=== PATIENT | male | born 1990 | race Caucasian/White ===

== ENCOUNTER 2019-02-04 15:33 | Emergency (ER) | payer BC, MEDICAID ==
--- NOTE | 2019-02-04 16:41 | ED Physician Documentation ---
PD HPI URI - Stated complaint Stated Complaint: FEVER, BLISTERS ON HANDS/FEET/FACE - Chief complaint Chief Complaint: Wound - History obtained from History obtained from: Patient - History of Present Illness Timing - onset: How many days ago (2) Timing duration: Days (2) Timing details: Abrupt onset, Still present Associated symptoms: Fever, Nasal congestion, Dry cough, Other (skin rash diffusely, most notable on face and hands.). No: NVD Contributing factors: Sick contact (kids with HFM with some rash. He thought he would not be getting it but started with URI/fever/rash couple days ago. Needed note to stay home from work.) Similar symptoms before: Has not had sx before Review of Systems Constitutional: reports: Fever Nose: reports: Rhinorrhea / runny nose, Congestion Throat: reports: Oral lesions / sores. denies: Sore throat Respiratory: reports: Cough GI: denies: Nausea, Vomiting, Diarrhea : denies: Dysuria, Frequency, Discharge Skin: reports: Rash Musculoskeletal: denies: Neck pain, Back pain PD PAST MEDICAL HISTORY - Past Medical History Past Medical History: No - Past Surgical History Past Surgical History: No - Present Medications Home Medications: Ambulatory Orders Medication Instructions Recorded Confirmed Cetirizine [ZyrTEC] 10 mg PO DAILY #15 tablet 02/04/19 dexAMETHasone [Decadron] 4 mg PO DAILY #5 tablet 02/04/19 - Allergies Allergies/Adverse Reactions: Allergies Allergy/AdvReac Type Severity Reaction Status Date / Time No Known Drug Allergies Allergy Verified 02/04/19 15:40 - Social History Does the pt smoke?: Yes Does the pt drink ETOH?: Yes Does the pt have substance abuse?: No - Immunizations Immunizations are current?: No Immunizations: TDAP >10years/unknown PD ED PE NORMAL - Vitals Vital signs reviewed: Yes - General General: Alert and oriented X 3, Well developed/nourished - HEENT HEENT: No: Pharynx benign (some red spots on roof of mouth) - Neck Neck: Supple, no meningeal sign, No adenopathy - Cardiac Cardiac: RRR, No murmur - Respiratory Respiratory: Clear bilaterally - Derm Derm: Normal color, Warm and dry, Other (diffuse spotty red rash, notable on face, also seen on hands/palms and whole body. ) - Neuro Neuro: Alert and oriented X 3, No motor deficit, Normal speech Results - Vitals Vitals: Oxygen O2 Source Room air PD MEDICAL DECISION MAKING - ED course Complexity details: considered differential, d/w patient Departure - Departure Disposition: 01 Home, Self Care Clinical Impression: Hand, foot and mouth disease (HFMD) Condition: Stable Record reviewed to determine appropriate education?: Yes Instructions: ED Hand Foot Mouth Disease Ch Prescriptions: Cetirizine [ZyrTEC] 10 mg PO DAILY #15 tablet dexAMETHasone [Decadron] 4 mg PO DAILY #5 tablet Forms: Activity restrictions Discharge Date/Time: 02/04/19 17:38
[2019-02-04] MEDS ORDERED: CHERRY SYRUP 10 ML UDC PO ONE (16:57)
[2019-02-04] MEDS ORDERED: ACETAMINOPHEN 325 MG TABLET PO STA (16:57)
[2019-02-04] MEDS ORDERED: DEXAMETHASONE 10 MG/ML VIAL PO STA (16:57)
[2019-02-04] MEDS ORDERED: CETIRIZINE 10 MG TABLET PO STA (16:57)
[2019-02-04 17:21] VITALS: BP 136/85
== END 2019-02-04 17:38 | disposition home or self-care (01) ==
LOC: ED 15:33
DX: B08.4 Enteroviral vesicular stomatitis with exanthem (principal)
CPT/HCPCS: 99282; 99284; A9270

== ENCOUNTER 2022-07-29 23:24 | Emergency (ER) | payer MEDICAID ==
[2022-07-30 00:09] VITALS: BP 184/108
== END 2022-07-30 05:17 | disposition left against medical advice (07) ==
LOC: ED 23:24
DX: Z53.21 Procedure and treatment not carried out due to patient leaving prior to being seen by health care provider (principal)

== ENCOUNTER 2022-09-13 13:02 | Emergency (ER) | payer MEDICAID ==
--- NOTE | 2022-09-13 13:36 | ED Physician Documentation ---
History of Present Illness - Stated complaint Stated Complaint: RT ABD PX - Chief complaint Chief Complaint: Abd Pain - Additonal information Additional information: 31-year-old male presents emergency department for evaluation of 1 week right lower quadrant abdominal pain. He states the pain is intermittent and he feels it mostly when sitting. He describes it as pressure-like. No associated fevers, nausea, vomiting or diarrhea. Denies any constipation. No pertinent past surgical history. He is free of abdominal pain at the time of my exam Review of Systems Constitutional: reports: Reviewed and negative Nose: reports: Reviewed and negative Cardiac: reports: Reviewed and negative Respiratory: reports: Reviewed and negative GI: reports: Abdominal Pain. denies: Nausea, Vomiting, Constipation, Hematemesis, Bloody / black stool : reports: Reviewed and negative Skin: reports: Reviewed and negative Musculoskeletal: reports: Reviewed and negative Neurologic: reports: Reviewed and negative PD PAST MEDICAL HISTORY - Past Surgical History Past Surgical History: No - Present Medications Home Medications: Ambulatory Orders Medication Instructions Recorded Confirmed Cetirizine [ZyrTEC] 10 mg PO DAILY #15 tablet 02/04/19 dexAMETHasone [Decadron] 4 mg PO DAILY #5 tablet 02/04/19 - Allergies Allergies/Adverse Reactions: Allergies Allergy/AdvReac Type Severity Reaction Status Date / Time No Known Drug Allergies Allergy Verified 07/30/22 00:08 - Social History Does the pt smoke?: Yes Smoking Status: Current every day smoker Does the pt drink ETOH?: Yes Does the pt have substance abuse?: No - Immunizations Immunizations are current?: No Immunizations: TDAP >10years/unknown - POLST Patient has POLST: No PD ED PE NORMAL - General General: Alert and oriented X 3, No acute distress - Neck Neck: Supple, no meningeal sign - Cardiac Cardiac: RRR, No murmur - Respiratory Respiratory: No respiratory distress, Clear bilaterally - Abdomen Abdomen: Normal bowel sounds, Non tender (Unable to elicit any tenderness in the right lower quadrant of the abdomen. Negative McBurney's. Negative Boone's. No CVA tenderness.) - Back Back: No CVA TTP - Derm Derm: Warm and dry - Neuro Neuro: Alert and oriented X 3 Eye Opening: Spontaneous Motor: Obeys Commands Verbal: Oriented GCS Score: 15 Results - Vitals Vitals: Vital Signs - 24 hr 09/13/22 09/13/22 13:19 14:00 Temperature 37.2 C 37.6 C Heart Rate 85 80 Respiratory 20 18 Rate Blood Pressure 183/107 H 161/95 H O2 Saturation 98 97 Oxygen O2 Source Room air - Labs Labs: Laboratory Tests 09/13/22 09/13/22 09/13/22 13:38 13:41 13:41 WBC 5.7 RBC 6.06 Hgb 15.7 Hct 49.6 MCV 81.8 MCH 25.9 L MCHC 31.7 L RDW 13.2 Plt Count 272 MPV 9.6 Neut # (Auto) 3.8 Lymph # (Auto) 1.4 [place] # (Auto) 0.4 Eos # (Auto) 0.0 Baso # (Auto) 0.0 Absolute Nucleated RBC 0.00 Nucleated RBC % 0.0 Sodium 140 Potassium 3.7 Chloride 104 Carbon Dioxide 27 Anion Gap 9.0 BUN 14 Creatinine 0.8 Estimated GFR (MDRD) 111 Glucose 131 H Calcium 9.9 Total Bilirubin 0.8 AST 33 ALT 65 H Alkaline Phosphatase 62 Total Protein 8.0 Albumin 4.9 Globulin 3.1 Albumin/Globulin Ratio 1.6 Lipase 30 Urine Color YELLOW Urine Clarity CLEAR Urine pH 6.0 Ur Specific [place] 1.010 Urine Protein NEGATIVE Urine Glucose (UA) NEGATIVE Urine Ketones NEGATIVE Urine Occult Blood NEGATIVE Urine Nitrite NEGATIVE Urine Bilirubin NEGATIVE Urine Urobilinogen 0.2 (NORMAL) Ur Leukocyte Esterase NEGATIVE Ur Microscopic Review NOT INDICATED Urine Culture Comments NOT INDICATED - Rads (name of study) abd/pel ct w Relevant Findings:: Final report received (No acute abdominal or pelvic abnormality. Normal appendix. No nephroureterolithiasis.) PD Medical Decision Making - ED course Complexity details: reviewed results, re-evaluated patient, d/w patient ED course: 31-year-old male here with 1 week of right lower quadrant abdominal pain. Describes it as pressure-like. Not associated with food intake. No urinary symptoms. At the time of my exam he was free of abdominal pain but was concerned that he could have acute appendicitis. We did obtain CBC, electrolytes and urinalysis. Per my interpretation there is no acute worrisome findings. CT of the abdomen was without acute surgical cause identified. Clinically I suspect he may have some mild constipation though the patient reports daily bowel movements. He is also wondering if he could have pulled a muscle though he denies any inciting events. At this time there is no acute cause identified for his abdominal pain. I did recommend a stool softener. Also recommended Motrin and Tylenol with usual emergent return precautions discussed for worsening symptoms Departure - Departure Disposition: 01 Home, Self Care Clinical Impression: Right lower quadrant abdominal pain Condition: Stable Record reviewed to determine appropriate education?: Yes Comments: Marcelo umanzor are seen today in the emergency department because for about a week you have had some pain and pressure in the right lower quadrant of your abdomen. As discussed at the bedside the labs obtained today in the emergency department were essentially normal. We also did do a CT of the abdomen that did not show any findings to suggest kidney stones, ureter stones, acute appendicitis, diverticulitis or other worrisome surgical conditions. I do note that there is a modest amount of stool throughout your colon. It is possible that a mild amount of constipation is causing your symptoms. I do recommend a stool softener or few doses of MiraLAX to see if that improves symptoms. You did wonder if it could possibly be a pulled muscle and in this case I would expect it to be spontaneously resolving over the next week or so however you can try and help it along by taking some Tylenol or ibuprofen [id number]. Discussed this ED visit with your primary care doctor. Return to the ER if you have suddenly severe or different abdominal pain, fevers, uncontrolled vomiting, black or bloody stools.
[2022-09-13 13:43] LABS: BILIRUBIN,URINE NEGATIVE (NEGATIVE); GLUCOSE, URINE (UA) NEGATIVE (NEGATIVE); KETONES,URINE (UA) NEGATIVE (NEGATIVE); LEUKOCYTE ESTERASE, URINE NEGATIVE (NEGATIVE); NITRITE,URINE NEGATIVE (NEGATIVE); OCCULT BLOOD,URINE NEGATIVE (NEGATIVE); PROTEIN,URINE NEGATIVE (NEGATIVE); UROBILINOGEN,URINE 0.2 (NORMAL) E.U./dL (NORMAL)
[2022-09-13 13:44] LABS: BASOPHILS % (AUTO) 0.7 %; EOSINOPHILS % (AUTO) 0.7 %; HCT - HEMATOCRIT 49.6 % (42.0-52.0); HGB - HEMOGLOBIN 15.7 g/dL (14.0-18.0); LYMPHOCYTES # (AUTO) 1.4 10^3/uL (1.5-3.5); LYMPHOCYTES % (AUTO) 24.1 %; MEAN CORPUSCULAR HEMOGLOBIN 25.9 pg (27.0-31.0); MEAN CORPUSCULAR HGB CONC 31.7 g/dL (32.0-36.0); MEAN CORPUSCULAR VOLUME 81.8 fL (80.0-94.0); MEAN PLATELET VOLUME 9.6 fL (7.4-11.4); MONOCYTES # (AUTO) 0.4 10^3/uL (0.0-1.0); NEUTROPHILS # (AUTO) 3.8 10^3/uL (1.5-6.6); NEUTROPHILS % (AUTO) 67.3 %; PLT - PLATELET COUNT 272 10^3/uL (130-450); RED BLOOD COUNT 6.06 10^6/uL (4.70-6.10); RED CELL DISTRIBUTION WIDTH 13.2 % (12.0-15.0); WHITE BLOOD COUNT 5.7 x10^3/uL (4.8-10.8)
[2022-09-13 13:44] LABS: CLARITY,URINE CLEAR (CLEAR)
[2022-09-13 13:57] LABS: ALBUMIN 4.9 g/dL (3.2-5.5); ALBUMIN/GLOBULIN RATIO 1.6 (1.0-2.2); BILIRUBIN,TOTAL 0.8 mg/dL (0.2-1.0); CALCIUM 9.9 mg/dL (8.5-10.3); CREATININE 0.8 mg/dL (0.6-1.2); POTASSIUM 3.7 mmol/L (3.5-5.0)
[2022-09-13] MEDS ORDERED: iohexoL-300 100 ML VIAL ONE (14:36)
[2022-09-13] MEDS ORDERED: iohexoL-300 100 ML VIAL IVP ONE (14:49)
--- NOTE | 2022-09-13 15:11 | CT Report ---
PROCEDURE: ABDOMEN/PELVIS W INDICATIONS: RLQ Abdominal pain, appendicitis suspected TECHNIQUE: After the administration of contrast, 5 mm thick sections acquired from the diaphragms to the symphys is. 5 mm thick coronal and sagittal reformats were acquired. For radiation dose reduction, the foll owing was used: automated exposure control, adjustment of mA and/or kV according to patient size. COMPARISON: None FINDINGS: Image quality: Excellent. Lung bases and heart: Unremarkable. Liver: The liver has low density consistent with hepatic steatosis. The gallbladder is normal. Gallbladder and biliary tree: The gallbladder is normal. Spleen: No splenomegaly. Pancreas: No pancreatic ductal dilation. Adrenals: No adrenal nodule. Kidneys and ureters: No hydronephrosis. No renal cystic lesion which requires follow up. No solid mas s. A simple 1.2 cm cyst of the right superior pole and a simple 1 cm cyst of the left lower pole is s een. Bowel and peritoneum: No bowel distension. No pathologic free fluid. Diverticulosis without evidence of acute diverticulitis. Lymph nodes: No central or retroperitoneal adenopathy. Vessels: No infrarenal aortic aneurysm. PELVIS Reproductive organs: Unremarkable. Bladder: No abnormal wall thickening, accounting for underdistension. Pelvic lymph nodes: No pelvic adenopathy by size criteria. Bones: No aggressive osseous abnormality. Other: No significant ventral or inguinal hernia. IMPRESSION: 1. No acute abdominal or pelvic abnormality. 2. Normal appendix. 3. No nephroureterolithiasis. Reviewed by: Nik Nicholson on 09/13/2022 2:09 PM [facility] Approved by: Nik Nicholson on 09/13/2022 2:09 PM [facility] Station ID: [id number]
[2022-09-13 15:37] VITALS: BP 143/97
== END 2022-09-13 15:32 | disposition home or self-care (01) ==
LOC: ED 13:02
DX: R10.31 Right lower quadrant pain (principal); F17.200 Nicotine dependence, unspecified, uncomplicated
CPT/HCPCS: 36415; 74177; 80053; 81003; 83690; 85025; 99283; 99284; Q9967; 81001; 87086

== ENCOUNTER 2022-12-17 08:00 | Outpatient (CLI) | payer MEDICAID ==
[2022-12-17 18:15] LABS: FECAL OCCULT BLOOD (FIT) NEGATIVE (NEGATIVE)
== END 2022-12-17 23:59 | disposition home or self-care (01) ==
LOC: LAB.R 08:00
PROVIDERS: ATTEND Family Medicine
DX: R10.9 Unspecified abdominal pain (principal); K76.0 Fatty (change of) liver, not elsewhere classified
CPT/HCPCS: 36415; 80061; 80076; 82274; 83721; 83993; 84443; 86803; 87045; 87046; 87177; 87209; 87340; 87427

== ENCOUNTER 2022-12-17 13:48 | Outpatient (CLI) | payer MEDICAID ==
[2022-12-17 18:31] LABS: THYROID STIMULATING HORMONE 1.36 uIU/mL (0.34-5.60)
[2022-12-17 20:53] LABS: ALKALINE PHOSPHATASE 68 IU/L (42-121); ALT ALANINE AMINOTRANSFERASE 27 IU/L (10-60); AST ASPARTATE AMINOTRANSFERASE 16 IU/L (10-42); BILIRUBIN,DIRECT < 0.10 mg/dL (0.03-0.18); BILIRUBIN,TOTAL 0.3 mg/dL (0.2-1.0); TOTAL PROTEIN 7.1 g/dL (6.4-8.9)
[2022-12-17 22:30] LABS: CHOL/HDL RATIO 3.7 (<5.0); CHOLESTEROL 181 mg/dL; HDL CHOLESTEROL 49 mg/dL; LDL CHOLESTEROL,CALCULATED 115 mg/dL; LDL/HDL RATIO 2.3 (<3.6); TRIGLYCERIDES 85 mg/dL (48-352); VLDL CHOLESTEROL 17 mg/dL
[2022-12-18 04:09] LABS: HCV AB Non Reactive (Non Reactive)
[2022-12-18 07:09] LABS: HBsAG SCREEN Negative (Negative)
== END 2022-12-17 13:49 | disposition home or self-care (01) ==
LOC: LAB.N 13:48
PROVIDERS: ATTEND Family Medicine
DX: R10.9 Unspecified abdominal pain (principal); K76.0 Fatty (change of) liver, not elsewhere classified
CPT/HCPCS: 36415; 80061; 80076; 83721; 84443; 86803; 87340

== ENCOUNTER 2023-03-18 14:04 | Outpatient (CLI) | payer MEDICAID ==
[2023-03-18 17:51] LABS: HCT - HEMATOCRIT 51.5 % (42.0-52.0); MEAN CORPUSCULAR HEMOGLOBIN 25.8 pg (27.0-31.0); MEAN CORPUSCULAR HGB CONC 31.1 g/dL (32.0-36.0); MEAN CORPUSCULAR VOLUME 82.9 fL (80.0-94.0); RED BLOOD COUNT 6.21 10^6/uL (4.70-6.10); RED CELL DISTRIBUTION WIDTH 13.2 % (12.0-15.0); WHITE BLOOD COUNT 5.8 x10^3/uL (4.8-10.8)
[2023-03-18 18:24] LABS: CALCIUM 9.7 mg/dL (8.5-10.3); CREATININE 0.7 mg/dL (0.6-1.3); POTASSIUM 4.2 mmol/L (3.5-4.5)
[2023-03-18 18:36] LABS: FERRITIN 55.4 ng/mL (23.9-336.2)
== END 2023-03-18 14:05 | disposition home or self-care (01) ==
LOC: LAB.N 14:04
PROVIDERS: ATTEND Family Medicine
DX: R42 Dizziness and giddiness (principal); R19.7 Diarrhea, unspecified
CPT/HCPCS: 36415; 80048; 82728; 85027

== ENCOUNTER 2023-05-27 12:44 | Outpatient (CLI) | payer MEDICAID | END 2023-05-27 12:45 | disposition home or self-care (01) | LOC: DI 12:44 | PROVIDERS: ATTEND Family Medicine | DX: I10 Essential (primary) hypertension (principal); R42 Dizziness and giddiness | CPT/HCPCS: 93307 ==

== ENCOUNTER 2023-08-10 15:41 | Outpatient (CLI) | payer MEDICAID | END 2023-08-10 15:42 | disposition home or self-care (01) | LOC: LAB.N 15:41 | PROVIDERS: ATTEND Internal Medicine | DX: K52.9 Noninfective gastroenteritis and colitis, unspecified (principal) | CPT/HCPCS: 36415; 81599; 85651; 86140 ==